=== PATIENT | female | born 1945 | race Caucasian/White ===

== ENCOUNTER 2024-02-23 18:02 | Emergency (ER) | payer OTHER ==
[2024-02-23] MEDS ORDERED: Sodium Chloride 0.9% 10 ML Syringe FLUSH PRN (18:07)
[2024-02-23] MEDS ORDERED: Morphine 2 MG/ML SYRINGE IVPUSH ONE (18:18)
[2024-02-23] MEDS: Ondansetron 4 MG/2 ML SDV IVPUSH ONE (18:36)
[2024-02-23] MEDS: Dicyclomine 20 MG Tab PO ONE (18:39)
[2024-02-23] MEDS: Sodium Chloride 0.9% 1,000 ML IV ONE (18:39)
[2024-02-23 18:41] LABS: BASOPHILS ABSOLUTE AUTO 0.03 K/uL (0.00-0.20); BASOPHILS PERCENT AUTO 0.2 % (0.0-2.0); EOSINOPHILS ABSOLUTE AUTO 0.02 K/uL (0.00-0.50); EOSINOPHILS PERCENT AUTO 0.2 % (0.0-5.0); LYMPHOCYTES ABSOLUTE AUTO 0.82 K/uL (0.50-3.50); LYMPHOCYTES PERCENT AUTO 6.4 % (10.0-50.0); MEAN CORPUSCULAR HEMOGLOBIN 33.3 pg (28.2-33.3); MEAN CORPUSCULAR HGB CONC 33.2 g/dL (31.7-36.0); MEAN CORPUSCULAR VOLUME 100.5 fL (84.0-98.0); MONOCYTES ABSOLUTE AUTO 0.46 K/uL (0.00-1.00); MONOCYTES PERCENT AUTO 3.6 % (2.0-14.0); NEUTROPHILS ABSOLUTE AUTO 11.43 K/uL (1.40-7.00); NEUTROPHILS PERCENT AUTO 89.6 % (45.0-80.0); PLATELET COUNT,PLT 424 K/uL (150-350); RED BLOOD CELL COUNT 1.83 M/uL (3.77-5.09); RED CELL DISTRIBUTION WIDTH 14.2 % (11.2-14.1); WHITE BLOOD CELL COUNT,WBC 12.8 K/uL (4.0-10.2)
[2024-02-23 18:45] LABS: HEMATOCRIT 18.4 % (34.0-46.0); HEMOGLOBIN 6.1 g/dL (11.7-15.5)
[2024-02-23] MEDS ORDERED: Acetaminophen 325 MG Tab PO ONE (19:04)
[2024-02-23 19:07] LABS: ALANINE AMINOTRANSFERASE,ALT 21 U/L (12-78); ALBUMIN 3.8 g/dL (3.4-5.0); ALKALINE PHOSPHATASE 156 IU/L (46-116); ASPARTATE AMNIOTRANSFERASE,AST 24 U/L (15-37); BLOOD UREA NITROGEN,BUN 76 mg/dL (7-18); CALCIUM 8.6 mg/dL (8.5-10.1); CARBON DIOXIDE,CO2 14.2 mmol/L (21.0-32.0); CHLORIDE,CL 83 mmol/L (98-107); GLUCOSE RANDOM 172 mg/dL (70-99); PROTEIN TOTAL,TP 7.3 g/dL (6.4-8.2)
[2024-02-23 19:10] LABS: ANION GAP 21.9 meq/L (7-15); CREATININE 4.59 mg/dL (0.51-1.17); ESTIMATED GFR 9 mL/min (>=60); POTASSIUM,K 6.1 mmol/L (3.5-5.1); SODIUM,NA 113 mmol/L (136-145)
[2024-02-23] MEDS: Sodium Chloride 3% 500 ML IV SCH (19:38)
[2024-02-23] MEDS: Promethazine 25 MG/ML SDV IM ONE (20:00)
== END 2024-02-23 20:35 ==
LOC: LL.ED 18:02
DX: K52.9 Noninfective gastroenteritis and colitis, unspecified (principal); E87.1 Hypo-osmolality and hyponatremia; E86.0 Dehydration; D64.9 Anemia, unspecified; Z66 Do not resuscitate; N17.9 Acute kidney failure, unspecified; N18.30 Chronic kidney disease, stage 3 unspecified; I13.0 Hypertensive heart and chronic kidney disease with heart failure and stage 1 through stage 4 chronic kidney disease, or unspecified chronic kidney disease; I50.9 Heart failure, unspecified; I25.2 Old myocardial infarction; I25.10 Atherosclerotic heart disease of native coronary artery without angina pectoris; E11.22 Type 2 diabetes mellitus with diabetic chronic kidney disease; E11.42 Type 2 diabetes mellitus with diabetic polyneuropathy; E66.9 Obesity, unspecified; Z79.899 Other long term (current) drug therapy; Z79.02 Long term (current) use of antithrombotics/antiplatelets; Z79.84 Long term (current) use of oral hypoglycemic drugs; Z88.0 Allergy status to penicillin; Z88.1 Allergy status to other antibiotic agents; Z88.2 Allergy status to sulfonamides; Z88.6 Allergy status to analgesic agent; Z88.8 Allergy status to other drugs, medicaments and biological substances; Z91.040 Latex allergy status; Z91.018 Allergy to other foods
CPT/HCPCS: 36415; 74019; 80053; 83605; 83690; 83735; 83880; 85025; 93005; 96361; 96372; 96374; 99284; 99285; A9270; J2405; J2550; J7030; J7040